=== PATIENT | female | born 1955 | race Caucasian/White ===

== ENCOUNTER → 2020-12-17 12:18 | Outpatient (CLI) | payer BC, SELFPAY ==
--- NOTE | ~2020-12-17 | MM_ITS ---
EXAMINATION: MM screening [facility] BI w myke HISTORY: Screening mammogram TECHNIQUE: Craniocaudal and mediolateral oblique 3-D tomosynthesis images were obtained and synthetic 2-D images were generated. CAD analysis was submitted and interpreted. COMPARISON: 03/23/2018, 08/20/2011, 08/13/2011 BREAST PARENCHYMAL COMPOSITION: There are scattered areas of fibroglandular density. FINDINGS: There is no evidence of suspicious mass, calcification, or architectural distortion to sugg est malignancy in either breast. There has been no suspicious interval change. IMPRESSION: 1. No mammographic evidence of malignancy. 2. Recommend routine screening mammography in one year. BI-RADS Category 1: Negative Reviewed, dictated and finalized at location A. LE PATROL OFFICER
== END ==
PROVIDERS: PCP Family Medicine; Visit Provider Physician Assistant
DX: Z12.31 Encounter for screening mammogram for malignant neoplasm of breast (principal)
CPT/HCPCS: 77063; 77067

== ENCOUNTER 2020-12-31 09:47 | Outpatient (CLI) | payer BC, SELFPAY | END 2020-12-31 09:48 | disposition home or self-care (01) | LOC: ANHCOVIDVC 09:47 | PROVIDERS: PCP Family Medicine | DX: Z23 Encounter for immunization (principal) | CPT/HCPCS: 0001A; 91300 ==

== ENCOUNTER 2021-01-21 09:49 | Outpatient (CLI) | payer BC, SELFPAY | END 2021-01-21 09:50 | disposition home or self-care (01) | LOC: ANHCOVIDVC 09:49 | PROVIDERS: PCP Family Medicine | DX: Z23 Encounter for immunization (principal) | CPT/HCPCS: 0002A; 91300 ==

== ENCOUNTER → 2022-06-25 12:15 | Outpatient (CLI) | payer BC, SELFPAY ==
--- NOTE | ~2022-06-25 | XR_ITS ---
XR hip RT min 2V DATE: 06/25/2022 12:43 INDICATION: Right hip pain TECHNIQUE: AP and lateral views COMPARISON: None FINDINGS: No fracture or dislocation, avascular necrosis or bone destruction is detected. Mild right hip osteoarthritis. The pubic symphysis and sacral iliac joints appear normally aligned. IMPRESSION: Mild right hip osteoarthritis Reviewed, dictated and finalized at location B.
--- NOTE | ~2022-06-25 | XR_ITS ---
XR cervical spine 4-5V DATE: 06/25/2022 12:44 INDICATION: Chronic neck pain TECHNIQUE: AP, lateral, open-mouth, bilateral oblique views COMPARISON: 05/16/2018 cervical spine FINDINGS: There is reversal of cervical curvature. C1 and C2 are normally aligned and the odontoid process is intact. There is approximately 1.3 mm anterolisthesis at C4-5. Mild degenerative disc disease at C4-5 and C5-6. No fracture or dislocation or locked facet or prevertebral soft tissue swelling. IMPRESSION: Reversal cervical curvature Stable mild cervical spondylosis since 05/16/2018 Reviewed, dictated and finalized at location B.
== END ==
PROVIDERS: PCP Family Medicine; Visit Provider Chiropractor
DX: M16.11 Unilateral primary osteoarthritis, right hip (principal); M47.812 Spondylosis without myelopathy or radiculopathy, cervical region
CPT/HCPCS: 72050; 73502

== ENCOUNTER → 2022-08-26 10:37 | Outpatient (CLI) | payer BC, SELFPAY ==
--- NOTE | ~2022-08-26 | MM_ITS ---
EXAMINATION: MM screening ej BI w myke HISTORY: Screening TECHNIQUE: Craniocaudal and mediolateral oblique 3-D tomosynthesis images were obtained and synthetic 2-D images were generated. CAD analysis was submitted and interpreted. COMPARISON: 12/17/2020 BREAST PARENCHYMAL COMPOSITION: There are scattered areas of fibroglandular density. FINDINGS: The right breast is stable without evidence for malignancy. There is a new nodular asymmetr y posterior to the nipple on left MLO view. Or no suspicious calcifications or architectural distorti on. IMPRESSION: 1. New left breast asymmetry. 2. Additional mammographic views and possible breast ultrasound are recommended. BI-RADS Category 0: Incomplete: Needs additional imaging evaluation. Reviewed, dictated and finalized at location A. IMPRESSION: 1. New left breast asymmetry. 2. Additional mammographic views and possible breast ultrasound are recommended . BI-RADS Category 0: Incomplete: Needs additional imaging evaluation.
== END ==
PROVIDERS: PCP Family Medicine; Visit Provider Family Medicine
DX: Z12.31 Encounter for screening mammogram for malignant neoplasm of breast (principal)
CPT/HCPCS: 77063; 77067

== ENCOUNTER 2022-09-10 11:29 | Outpatient (CLI) | payer BC, SELFPAY ==
--- NOTE | ~2022-09-10 | MMUS_ITS ---
EXAMINATION: MM diagnostic ej LT w myke, US breast LT complete HISTORY: Follow-up left breast asymmetry TECHNIQUE: Additional 3-D tomosynthesis images of the left breast were performed and synthetic 2-D im ages were generated. CAD analysis was submitted and interpreted. High resolution Limited left breast ultrasound was performed. COMPARISON: Comparison to multiple prior studies sequentially, with oldest reviewed study dated 03/23. BREAST PARENCHYMAL COMPOSITION: Breast composed of scattered areas of fibroglandular density FINDINGS: MAMMOGRAPHIC FINDINGS: No suspicious masses, calcifications or architectural distortion are identified. The focal asymmetry seen on prior screening mammogram is not reproducible. ULTRASOUND: Complete left breast US of all 4 quadrants of the breasts and retroareolar region was reviewed. Antonieta l heterogeneous echotexture without focal solid or cystic mass. IMPRESSION: 1. No mammographic or sonographic evidence for malignancy. 2. Routine yearly screening mammogram and regular clinical breast examination are recommended. BI-RADS Category 1: Negative Reviewed, dictated and finalized at location A. RED TRANSPORT SERVICE MANAGER IMPRESSION: 1. No mammographic or sonographic evidence for malignancy. 2. Routine yearly screening mammogram and regular clinical breast examination a re recommended. BI-RADS Category 1: Negative
== END 2022-09-10 11:30 | disposition home or self-care (01) ==
PROVIDERS: PCP Family Medicine; Visit Provider Physician Assistant
DX: R92.8 Other abnormal and inconclusive findings on diagnostic imaging of breast (principal)
CPT/HCPCS: 76641; 77061; 77065; G0279

== ENCOUNTER 2023-06-03 08:29 | Outpatient (CLI) | payer MEDICARE, SELFPAY ==
--- NOTE | 2023-06-03 08:39 | EST_ITS ---
Patient Info Name: Ami Gilbert Age: 68 years : 1955 Gender: Female Ht: 70 in Wt: 225 lbs BSA: 2.28 m2 HR: 84 bpm BP: 200 / 100 mmHg Technical Quality: Fair Exam Date: 06/03/2023 9:38 AM Exam Location: [facility] Room: stress lab [facility] Patient Status: Outpatient Admit Date: 06/03/2023 Staff Ordering Physician: Tavon Iqbal DO Child Day Care Provider: Reva Puente RDCS Attending Provider: Tavon Iqbal DO Exercise Technologist: Adriana Cortes CT Exercise Physician: Tavon Iqbal DO Exam Type: CA stress echo w contrast Study Info Indications R06.09 - Other forms of dyspnea Treadmill exercise stress echocardiogram is performed. Contrast administered to opacify the left ventricle and to improve the deliniation of the left ventricular endocardial borders. Contrast/Agitated Saline Contrast/Ag. Saline: Definity Amount: 2.00 ml Administered By: Reva Puente [facility] IV Access: Right Site Condition: IV removed Summary 1. 1. Negative Emmanuel exercise stress test for ischemic ST changes by ECG criteria. 2. 2. Reduced functional capacity, achieving 6.5 METs of workload. 3. 3. Baseline hypertension with hypertensive response to exercise. 4. 4. Appropriate HR response to exercise. 5. 5. Appropriate HR recovery at 1 minute post exercise. 6. 6. Negative stress echocardiogram for ischemia by wall motion analysis. 7. 7. Patient informed of the above results. Stress Echo Findings Left Ventricle Definity was injected. Appropriate increase in LV endocardial thickening with systole. Appropriate augmentation of contractility with systole. No wall motion abnormality. Left Ventricle Definity was injected. Normal LV systolic function, no wall motion abnormality. Protocol: Emmanuel Stress ECG Details Stage: REST Duration (min): 1 min : 16 sec Speed (mph): 0.0 Grade (%): 0 HR (bpm): 93 SBP (mmHg): 151 DBP (mmHg): 80 METS: --- Stage: REST Duration (min): 55 min : 13 sec Speed (mph): 0.0 Grade (%): 0 HR (bpm): 96 SBP (mmHg): 151 DBP (mmHg): 80 METS: --- Stage: STAGE 1 Duration (min): 1 min : 0 sec Speed (mph): 1.7 Grade (%): 10 HR (bpm): 109 SBP (mmHg): 151 DBP (mmHg): 80 METS: --- Stage: STAGE 1 Duration (min): 2 min : 0 sec Speed (mph): 1.7 Grade (%): 10 HR (bpm): 116 SBP (mmHg): 151 DBP (mmHg): 80 METS: --- Stage: STAGE 1 Duration (min): 3 min : 0 sec Speed (mph): 1.7 Grade (%): 10 HR (bpm): 124 SBP (mmHg): 201 DBP (mmHg): 100 METS: --- Stage: STAGE 2 Duration (min): 1 min : 0 sec Speed (mph): 2.5 Grade (%): 12 HR (bpm): 133 SBP (mmHg): 201 DBP (mmHg): 100 METS: --- Stage: STAGE 2 Duration (min): 1 min : 1 sec Speed (mph): 0.0 Grade (%): 0 HR (bpm): 133 SBP (mmHg): 201 DBP (mmHg): 100 METS: --- Stage: RECOVERY Duration (min): 0 min : 58 sec Speed (mph): 0.0 Grade (%): 0 HR (bpm): 104 SBP (mmHg): 201 DBP (mmHg): 100 METS: --- Stage: RECOVERY Duration (min): 1 min : 58 sec Speed (mph): 0.0 Grade (%): 0 HR (bpm): --- SB
[2023-06-03] MEDS: PERFLUTREN LIPID MICROSPHERES 1.5 ML VIAL DILUTED TO 10 ML TOTAL VOLUME (10:00)
== END 2023-06-03 08:30 | disposition home or self-care (01) ==
PROVIDERS: PCP Family Medicine; Visit Provider Internal Medicine Cardiovascular Disease
DX: R06.09 Other forms of dyspnea (principal); I10 Essential (primary) hypertension
CPT/HCPCS: 93351; C8930; Q9957

== ENCOUNTER 2023-10-27 06:08 | Day surgery (SDC) | payer MEDICARE, SELFPAY ==
[2023-10-11 13:43] VITALS: BMI 31.8
[2023-10-27 07:15] VITALS: BP 132/77; PULSE 87; RESP 20; TEMP 36.3; O2SAT 99
--- NOTE | 2023-10-27 07:28 | WPDANESEPPF ---
Anes - Initial Pre Proc Eval Procedure: Operation Date: 10/27/23 08:30 Proposed Procedures p Colonoscopy - Stan Andrade MD Date/Time: 10/27/23 07:28 Surgeon: Stan Andrade MD Pre Op Diagnosis: Other Fecal Abnormalities Patient Data Age: 68 Gender: F Height: 1.78 m Weight: 101.1 kg Allergies Allergy/AdvReac Type Severity Reaction Status Date / Time No Known Allergies Allergy Unknown Verified 10/11/23 13:38 Home Medications Medication Instructions Recorded Confirmed Type fenofibrate micronized 134 mg See Rx Instructions .Route 04/21/23 10/27/23 Rx capsule .COMPLEX #90 caps rosuvastatin 5 mg tablet See Rx Instructions .Route 07/17/23 10/27/23 Rx .COMPLEX #90 tabs duloxetine 30 mg capsule,delayed 30 mg PO DAILY #90 caps 08/02/23 10/27/23 Rx release sitagliptin phos 100 mg-metformin See Rx Instructions .Route 08/12/23 10/27/23 Rx ER 1,000 mg tablet,extend rel 24h .COMPLEX #100 tabs mp (Janumet XR) metoprolol succinate 50 mg See Rx Instructions .Route 08/16/23 10/27/23 Rx tablet,extended release 24 hr .COMPLEX #180 tabs levothyroxine 88 mcg tablet See Rx Instructions .Route 08/23/23 10/27/23 Rx .COMPLEX #112 tabs flash glucose sensor (FreeStyle #1 ea 09/13/23 10/27/23 Rx Elaine 2 Sensor kit) sodium,potassium,mag sulfates 17.5 See Rx Instructions PO .COMPLEX 09/15/23 10/27/23 Rx gram-3.13 gram-1.6 gram oral soln #354 mL (Suprep Bowel Prep Kit) dapagliflozin propanediol 10 mg See Rx Instructions .Route 10/13/23 10/27/23 Rx tablet (Farxiga) .COMPLEX #90 tabs lisinopril 20 See Rx Instructions .Route 10/19/23 10/27/23 Rx mg-hydrochlorothiazide 12.5 mg .COMPLEX #100 tabs tablet Patient hx anesthesia problems: none Family hx anesthesia problems: none Results Review: All pre-operative results and documents have been reviewed as part of the pre-operative evaluation. [facility] Past Medical History Medical History (Updated 10/27/23 @ 07:29 by Ming Pereira DO) Allergic rhinitis Essential (primary) hypertension Hypothyroidism, unspecified Mixed hyperlipidemia Type 2 diabetes mellitus without complications Family History Family History Mother Hypertension Family history of elevated blood lipids Cerebrovascular accident, Onset Age: 82 Patient's mother is Sibling Patient's sister is in good health Father Cerebrovascular accident, Onset Age: 82 Patient's father is Social History Social History (Updated 07/28/23 @ 09:35 by Elo Mccray) Social History: Smoking status: Never smoker Second hand tobacco smoke exposure: No Alcohol intake: never Substance use: never Substance use type: does not use Lack of Transportation: No Lack of Food: Never True Current Housing: I Have Housing Concerned About Future Housing: No Difficulty Paying Gas/Electric Bills: No Difficulty Paying for Meds: No Currently Unemployed: YES Education: Don't Know Difficulty w/ Childcare or Family Care: No Living arrangements: with family Occupation/Education: retired Gender identity (if verbalized by the patient): Female Sexual Orientation (if Verbalized by the Patient): Straight or Heterosexual Spiritual care concerns: No Anes - Eval Final PreProcedure Day of Procedure 10/27/23 07:28 Patient weight: obese Heart: regular rate and rhythm Lungs: clear to auscultation Airway: Mallampati scale class II Neurological: alert and oriented Last oral intake: >/= 8 hours ASA classification: III Emergent: no Anesthetic plan: proceed Anesthesia type and monitoring: general GIVS and standard monitoring Results Review: All pre-operative results and documents have been reviewed as part of the pre-operative evaluation. Informed Consent: The patient's anesthetic plan and its attendant risks and benefits were discussed with the patien
[2023-10-27] MEDS: LACTATED RINGERS 1,000 ML 150 ML IV CONT (07:37)
--- NOTE | 2023-10-27 07:42 | PM.HPGS ---
History of Present Illness History of Present Illness Consent: Risks, benefits, and alternatives have been discussed and questions answered. Patient agrees to proceed with procedure. Chief complaint: positive cologuard test Narrative: Ami Gilbert is a 68 year old female Presents for screening colonoscopy. Patient found to have positive Cologuard test. She denies any abdominal pain. She has had no bleeding. Family history noncontributory. Review of Systems Review of Systems: Review of Systems is noncontributory. [facility] Past Medical History Medical History (Updated 10/27/23 @ 07:43 by Stan Andrade MD) Allergic rhinitis Essential (primary) hypertension Hypothyroidism, unspecified Mixed hyperlipidemia Type 2 diabetes mellitus without complications Family History Family History Mother Hypertension Family history of elevated blood lipids Cerebrovascular accident, Onset Age: 82 Patient's mother is Sibling Patient's sister is in good health Father Cerebrovascular accident, Onset Age: 82 Patient's father is Social History Social History (Updated 07/28/23 @ 09:35 by Elo Mccray) Social History: Smoking status: Never smoker Second hand tobacco smoke exposure: No Alcohol intake: never Substance use: never Substance use type: does not use Lack of Transportation: No Lack of Food: Never True Current Housing: I Have Housing Concerned About Future Housing: No Difficulty Paying Gas/Electric Bills: No Difficulty Paying for Meds: No Currently Unemployed: YES Education: Don't Know Difficulty w/ Childcare or Family Care: No Living arrangements: with family Occupation/Education: retired Gender identity (if verbalized by the patient): Female Sexual Orientation (if Verbalized by the Patient): Straight or Heterosexual Spiritual care concerns: No Meds Home Medications and Allergies Home Medications Medication Instructions Recorded Confirmed Type fenofibrate micronized 134 mg See Rx Instructions .Route 04/21/23 10/27/23 Rx capsule .COMPLEX #90 caps rosuvastatin 5 mg tablet See Rx Instructions .Route 07/17/23 10/27/23 Rx .COMPLEX #90 tabs duloxetine 30 mg capsule,delayed 30 mg PO DAILY #90 caps 08/02/23 10/27/23 Rx release sitagliptin phos 100 mg-metformin See Rx Instructions .Route 08/12/23 10/27/23 Rx ER 1,000 mg tablet,extend rel 24h .COMPLEX #100 tabs mp (Janumet XR) metoprolol succinate 50 mg See Rx Instructions .Route 08/16/23 10/27/23 Rx tablet,extended release 24 hr .COMPLEX #180 tabs levothyroxine 88 mcg tablet See Rx Instructions .Route 08/23/23 10/27/23 Rx .COMPLEX #112 tabs flash glucose sensor (FreeStyle #1 ea 09/13/23 10/27/23 Rx Elaine 2 Sensor kit) sodium,potassium,mag sulfates 17.5 See Rx Instructions PO .COMPLEX 09/15/23 10/27/23 Rx gram-3.13 gram-1.6 gram oral soln #354 mL (Suprep Bowel Prep Kit) dapagliflozin propanediol 10 mg See Rx Instructions .Route 10/13/23 10/27/23 Rx tablet (Farxiga) .COMPLEX #90 tabs lisinopril 20 See Rx Instructions .Route 10/19/23 10/27/23 Rx mg-hydrochlorothiazide 12.5 mg .COMPLEX #100 tabs tablet Allergies Allergy/AdvReac Type Severity Reaction Status Date / Time No Known Allergies Allergy Unknown Verified 10/11/23 13:38 Vital Signs Vital Signs - 24 hr 10/27/23 07:15 Temperature 97.4 F L Pulse Rate 87 Respiratory Rate 20 Blood Pressure 132/77 Pulse Oximetry 99 Oxygen Delivery Room Air Exam Narrative: physical exam reveals patient to be alert. Vital signs stable. HEENT exam is unremarkable. Patient is anicteric. Lungs are clear to auscultation and percussion. Heart is without murmur or extra sounds. Abdomen bowel sounds are present soft nontender with no organomegaly. Digital external rectal exam is normal. Assessment and Plan
[2023-10-27 07:46] LABS: Glucose Point of Care 154 mg/dl (65-105)
[2023-10-27] MEDS: SIMETHICONE ORAL SUSPENSION 20 MG/0.3 ML 30 ML BOTTLE 0.6 ML IRRIGATION (08:35)
[2023-10-27 08:46] VITALS: BP 112/75; PULSE 76; RESP 16; O2SAT 97
[2023-10-27 08:56] VITALS: BP 118/72; PULSE 70; RESP 16; O2SAT 97
[2023-10-27 09:06] VITALS: BP 116/87; PULSE 70; RESP 16; O2SAT 98
--- NOTE | 2023-10-27 11:12 | WPDANESPN ---
Anes - Prog Note Post-Op Date/Time: 10/27/23 11:12 Cardiovascular status: normal Respiratory status: normal Airway patency: baseline Mental status: baseline Post-Op hydration status: normal Vital Signs: Last Vital Signs Temp 36.3 C L 10/27/23 07:15 Pulse 70 10/27/23 09:06 Resp 16 10/27/23 09:06 BP 116/87 10/27/23 09:06 Pulse Ox 98 10/27/23 09:06 O2 Del Method Room Air 10/27/23 09:06 Pain Score (VAS): 0 I/O: Intake & Output 10/26/23 10/27/23 10/27/23 23:59 07:59 15:59 Intake Total 550 Balance 550 10/27/23 07:43 POC Capillary Glucose 154 H Post-procedural complaints: none Patient Feedback: Patient satisfied with anesthetic care. Other Findings: Patient vital signs back to baseline. Patient denies nausea and vomiting. Patient's pain under control. Patient OK for discharge.
== END 2023-10-27 09:27 | disposition home or self-care (01) ==
PROVIDERS: PCP Family Medicine; Visit Provider Internal Medicine Gastroenterology
PROC: 0DJD8ZZ Inspection of Lower Intestinal Tract, Via Natural or Artificial Opening Endoscopic (ICD-10-PCS; CPT 45378; principal; 2023-10-27 08:30)
DX: R19.5 Other fecal abnormalities (principal); K64.8 Other hemorrhoids
CPT/HCPCS: 45378

== ENCOUNTER 2024-05-10 11:51 | Outpatient (CLI) | payer MEDICARE, SELFPAY ==
--- NOTE | ~2024-05-10 | XR_ITS ---
[id number] Ordering provider: Kiarra Alfonso PA-C History: . M54.2 - Cervicalgia . Comparison: June 25, 2022 FINDINGS: VERTEBRAL BODIES: Normal height and alignment. No visible fracture or subluxation. The dens is intact . Degenerative changes. DISK SPACES: Narrowing of the disc C5-C6. Multilevel uncovertebral joint osteoarthritic changes. Mult ilevel facet joint disease. PARASPINOUS SOFT TISSUES: No prevertebral soft tissue swelling. IMPRESSION: No acute osseous abnormality cervical spine. Degenerative disc disease at the level of C5-C6. Reviewed, dictated and finalized at location A. IMPRESSION: No acute osseous abnormality cervical spine. Degenerative disc disease at the l evel of C5-C6.
== END 2024-05-10 11:52 ==
LOC: MICIMG 11:54
PROVIDERS: PCP Family Medicine; Visit Provider Student in an Organized Health Care Education/Training Program
DX: M50.322 Other cervical disc degeneration at C5-C6 level (principal)
CPT/HCPCS: 72040

== ENCOUNTER 2024-10-06 13:18 | Outpatient (CLI) | payer MEDICARE, SELFPAY ==
--- NOTE | ~2024-10-06 | MM_ITS ---
EXAMINATION: MM screening [facility] BI w myke HISTORY: Screening TECHNIQUE: Craniocaudal and mediolateral oblique 3-D tomosynthesis images were obtained and synthetic 2-D images were generated. CAD analysis was submitted and interpreted. COMPARISON: Comparison to multiple prior studies sequentially, with oldest reviewed study dated 03/23. BREAST PARENCHYMAL COMPOSITION: Not dense: There are scattered areas of fibroglandular density. FINDINGS: There is no evidence of suspicious mass, calcification, or architectural distortion to sugg est malignancy in either breast. There has been no suspicious interval change. IMPRESSION: 1. No mammographic evidence of malignancy. 2. Recommend routine screening mammography in one year. BI-RADS Category 1: Negative Reviewed, dictated and finalized at location B. ICATION EQUIPMENT SERVICER
== END 2024-10-06 13:19 | disposition home or self-care (01) ==
LOC: MICIMG 13:19
PROVIDERS: PCP Family Medicine; Visit Provider Physician Assistant
DX: Z12.31 Encounter for screening mammogram for malignant neoplasm of breast (principal)
CPT/HCPCS: 77063; 77067